=== PATIENT | male | born 1960 | race Caucasian/White ===

== ENCOUNTER 2018-07-03 08:00 | Outpatient (CLI) | payer MEDICARE, OTHER | END 2018-07-03 23:59 | disposition home or self-care (01) | LOC: WOU 08:00 | PROVIDERS: ATTEND Specialist | DX: L89.312 Pressure ulcer of right buttock, stage 2 (principal); L89.321 Pressure ulcer of left buttock, stage 1; L22 Diaper dermatitis; G82.53 Quadriplegia, C5-C7 complete; V49.9XXS Car occupant (driver) (passenger) injured in unspecified traffic accident, sequela; Z87.891 Personal history of nicotine dependence; Z79.899 Other long term (current) drug therapy; I10 Essential (primary) hypertension; Z86.718 Personal history of other venous thrombosis and embolism | CPT/HCPCS: A6402; G0463; Z7610 ==

== ENCOUNTER 2018-07-24 08:00 | Outpatient (CLI) | payer MEDICARE, OTHER | END 2018-07-24 23:59 | disposition home or self-care (01) | LOC: WOU 08:00 | PROVIDERS: ATTEND Specialist | DX: L22 Diaper dermatitis (principal); G82.53 Quadriplegia, C5-C7 complete; S14.104S Unspecified injury at C4 level of cervical spinal cord, sequela; V49.9XXS Car occupant (driver) (passenger) injured in unspecified traffic accident, sequela; I10 Essential (primary) hypertension; Z86.718 Personal history of other venous thrombosis and embolism | CPT/HCPCS: G0463; Z7610; A6402 ==

== ENCOUNTER 2019-01-14 10:00 | Outpatient (CLI) | payer MEDICARE, OTHER | END 2019-01-14 23:59 | disposition home or self-care (01) | LOC: WOU 10:00 | PROVIDERS: ATTEND Podiatrist Foot & Ankle Surgery | DX: L84 Corns and callosities (principal); L60.3 Nail dystrophy; L60.1 Onycholysis; B35.1 Tinea unguium; G82.50 Quadriplegia, unspecified; R60.0 Localized edema | CPT/HCPCS: G0463 ==

== ENCOUNTER 2019-04-14 13:15 | Outpatient (CLI) | payer MEDICARE, OTHER | END 2019-04-14 23:59 | disposition home or self-care (01) | LOC: WOU 13:15 | PROVIDERS: ATTEND Surgery | DX: S51.011A Laceration without foreign body of right elbow, initial encounter (principal); X58.XXXA Exposure to other specified factors, initial encounter; Y92.89 Other specified places as the place of occurrence of the external cause; R53.2 Functional quadriplegia; I10 Essential (primary) hypertension; J45.909 Unspecified asthma, uncomplicated; Z87.891 Personal history of nicotine dependence | CPT/HCPCS: 11042; A6402 ==

== ENCOUNTER 2019-07-14 12:40 | Outpatient (CLI) | payer MEDICARE, OTHER | END 2019-07-14 23:59 | disposition home or self-care (01) | LOC: WOU 12:40 | PROVIDERS: ATTEND Surgery | DX: L60.0 Ingrowing nail (principal); L03.011 Cellulitis of right finger; R53.2 Functional quadriplegia; I10 Essential (primary) hypertension; J45.909 Unspecified asthma, uncomplicated; Z87.891 Personal history of nicotine dependence | CPT/HCPCS: 11042 ==

== ENCOUNTER 2019-07-24 08:30 | Outpatient (CLI) | payer MEDICARE, OTHER | END 2019-07-24 23:59 | disposition home or self-care (01) | LOC: WOU 08:30 | PROVIDERS: ATTEND Podiatrist Foot & Ankle Surgery | DX: B35.1 Tinea unguium (principal); M62.50 Muscle wasting and atrophy, not elsewhere classified, unspecified site; G82.53 Quadriplegia, C5-C7 complete; T14.90XS Injury, unspecified, sequela; V49.9XXS Car occupant (driver) (passenger) injured in unspecified traffic accident, sequela; Z86.718 Personal history of other venous thrombosis and embolism; M79.609 Pain in unspecified limb; M62.3 Immobility syndrome (paraplegic) | CPT/HCPCS: G0463 ==

== ENCOUNTER 2019-08-04 13:00 | Outpatient (CLI) | payer MEDICARE, OTHER | END 2019-08-04 23:59 | disposition home or self-care (01) | LOC: WOU 13:00 | PROVIDERS: ATTEND Surgery | DX: B35.1 Tinea unguium (principal); M62.3 Immobility syndrome (paraplegic); M62.50 Muscle wasting and atrophy, not elsewhere classified, unspecified site; V49.9XXS Car occupant (driver) (passenger) injured in unspecified traffic accident, sequela; I10 Essential (primary) hypertension; J45.909 Unspecified asthma, uncomplicated; Z87.891 Personal history of nicotine dependence | CPT/HCPCS: G0463 ==

== ENCOUNTER 2019-10-23 08:40 | Outpatient (CLI) | payer MEDICARE, OTHER | END 2019-10-23 23:59 | disposition home or self-care (01) | LOC: WOU 08:40 | PROVIDERS: ATTEND Podiatrist Foot & Ankle Surgery | DX: B35.1 Tinea unguium (principal); M62.50 Muscle wasting and atrophy, not elsewhere classified, unspecified site; G82.53 Quadriplegia, C5-C7 complete; S14.104S Unspecified injury at C4 level of cervical spinal cord, sequela; V49.9XXS Car occupant (driver) (passenger) injured in unspecified traffic accident, sequela; I10 Essential (primary) hypertension; M79.609 Pain in unspecified limb; M62.3 Immobility syndrome (paraplegic) | CPT/HCPCS: G0463 ==

== ENCOUNTER → 2019-10-23 | Emergency (ER) | payer MEDICARE, OTHER ==
[~2019-10-23] VITALS: Ht 152.4 cm; Wt 59.0 kg
--- NOTE | 2019-10-23 09:58 | NUR ---
CAME IN FOR REDNESSS AND SWELLING OF R PINKIE FINGER x 1WEEK, PATIENT WHEELCHAIR BOUND, ACCOMPANIED BY BROTHER. TO ER BED 12, PARTIENT AOx4 , BREATHING EVEN AND UNLABORED, DR PENNINGTON AT BEDSIDE
--- NOTE | 2019-10-23 10:49 | NUR ---
US TECH AT BEDSIDE
--- NOTE | 2019-10-23 12:03 | NUR ---
CALLED [facility] [phone] HENRIQUEZ TO CALL US BACK.
--- NOTE | 2019-10-23 13:30 | NUR ---
For Discharge- Patient discharged to home in stable condition. Written and verbal after care instructions given. Patient verbalizes understanding of instruction.
[2019-10-23 14:27] VITALS: BP 110/72
== END | disposition home or self-care (01) ==
LOC: ER 09:55
DX: L60.8 Other nail disorders (principal)
CPT/HCPCS: 93930-TC

== ENCOUNTER 2019-10-27 09:18 | Outpatient (CLI) | payer MEDICARE, OTHER | END 2019-10-27 23:59 | disposition home or self-care (01) | LOC: WOU 09:18 | PROVIDERS: ATTEND Surgery | DX: I73.9 Peripheral vascular disease, unspecified (principal); R53.2 Functional quadriplegia; I10 Essential (primary) hypertension; J45.909 Unspecified asthma, uncomplicated; Z87.891 Personal history of nicotine dependence | CPT/HCPCS: G0463 ==

== ENCOUNTER 2019-10-27 10:14 | Outpatient (CLI) | payer MEDICARE, OTHER ==
[2019-10-27 10:47] LABS: CREATININE 0.2 mg/dL (0.6-1.3)
== END 2019-10-27 23:59 | disposition home or self-care (01) ==
LOC: LAB 10:14
PROVIDERS: ATTEND Surgery
DX: I70.208 Unspecified atherosclerosis of native arteries of extremities, other extremity (principal); M79.89 Other specified soft tissue disorders
CPT/HCPCS: 36415; 82565-TC; 84520-TC

== ENCOUNTER 2019-11-04 08:32 | Outpatient (CLI) | payer MEDICARE, OTHER | END 2019-11-04 23:59 | disposition home or self-care (01) | LOC: CT 08:32 | PROVIDERS: ATTEND Surgery | DX: G31.89 Other specified degenerative diseases of nervous system (principal) | CPT/HCPCS: 73206-TC ==

== ENCOUNTER 2019-11-11 12:40 | Outpatient (CLI) | payer MEDICARE, OTHER | END 2019-11-11 23:59 | disposition home or self-care (01) | LOC: VASLAB 12:40 | PROVIDERS: ATTEND Surgery Vascular Surgery | DX: M62.3 Immobility syndrome (paraplegic) (principal); M62.50 Muscle wasting and atrophy, not elsewhere classified, unspecified site; M79.609 Pain in unspecified limb | CPT/HCPCS: G0463 ==

== ENCOUNTER 2020-01-12 09:30 | Outpatient (CLI) | payer MEDICARE, OTHER | END 2020-01-12 23:59 | disposition home or self-care (01) | LOC: WOU 09:30 | PROVIDERS: ATTEND Surgery | DX: B35.1 Tinea unguium (principal); R53.2 Functional quadriplegia; M62.50 Muscle wasting and atrophy, not elsewhere classified, unspecified site; M79.609 Pain in unspecified limb; I10 Essential (primary) hypertension; J45.909 Unspecified asthma, uncomplicated; Z87.891 Personal history of nicotine dependence | CPT/HCPCS: G0463 ×2 ==

== ENCOUNTER 2020-04-22 12:35 | Outpatient (CLI) | payer MEDICARE, OTHER | END 2020-04-22 23:59 | disposition home or self-care (01) | LOC: WOU 12:35 | PROVIDERS: ATTEND Surgery | DX: B35.1 Tinea unguium (principal); R53.2 Functional quadriplegia; M62.50 Muscle wasting and atrophy, not elsewhere classified, unspecified site; L22 Diaper dermatitis; I10 Essential (primary) hypertension; J45.909 Unspecified asthma, uncomplicated; Z87.891 Personal history of nicotine dependence | CPT/HCPCS: G0463 ==

== ENCOUNTER 2020-11-22 11:00 | Outpatient (CLI) | payer MEDICARE, OTHER | END 2020-11-22 23:59 | disposition home or self-care (01) | LOC: WOU 11:00 | PROVIDERS: ATTEND Podiatrist Foot & Ankle Surgery | DX: B35.1 Tinea unguium (principal); R53.2 Functional quadriplegia; M62.50 Muscle wasting and atrophy, not elsewhere classified, unspecified site; M79.609 Pain in unspecified limb | CPT/HCPCS: G0463 ==

== ENCOUNTER 2021-01-17 13:50 | Outpatient (CLI) | payer MEDICARE, OTHER | END 2021-01-17 23:59 | disposition home or self-care (01) | LOC: WOU 13:50 | PROVIDERS: ATTEND Surgery | DX: L89.896 Pressure-induced deep tissue damage of other site (principal); R53.2 Functional quadriplegia; M62.50 Muscle wasting and atrophy, not elsewhere classified, unspecified site; I10 Essential (primary) hypertension; J45.909 Unspecified asthma, uncomplicated; Z87.891 Personal history of nicotine dependence | CPT/HCPCS: G0463 ==

== ENCOUNTER 2023-01-18 10:11 | Outpatient (CLI) | payer MEDICARE, OTHER | END 2023-01-18 23:59 | disposition home or self-care (01) | LOC: WOU 10:11 | PROVIDERS: ATTEND Podiatrist Foot & Ankle Surgery | DX: L60.3 Nail dystrophy (principal); R53.2 Functional quadriplegia; M62.50 Muscle wasting and atrophy, not elsewhere classified, unspecified site | CPT/HCPCS: G0463 ==

== ENCOUNTER 2023-07-12 13:15 | Outpatient (CLI) | payer MEDICARE, OTHER | END 2023-07-12 23:59 | disposition home or self-care (01) | LOC: WOU 13:15 | PROVIDERS: ATTEND Surgery | DX: L03.116 Cellulitis of left lower limb (principal); L30.4 Erythema intertrigo; L22 Diaper dermatitis; R53.2 Functional quadriplegia; L60.3 Nail dystrophy; I10 Essential (primary) hypertension; J45.909 Unspecified asthma, uncomplicated | CPT/HCPCS: G0463 ==

== ENCOUNTER 2023-12-20 12:55 | Outpatient (CLI) | payer MEDICARE, OTHER | END 2023-12-20 23:59 | disposition home or self-care (01) | LOC: WOU 12:55 | PROVIDERS: ATTEND Surgery | DX: B35.1 Tinea unguium (principal); L60.3 Nail dystrophy; L30.4 Erythema intertrigo; R53.2 Functional quadriplegia; M62.50 Muscle wasting and atrophy, not elsewhere classified, unspecified site; L22 Diaper dermatitis; I10 Essential (primary) hypertension; J45.909 Unspecified asthma, uncomplicated | CPT/HCPCS: G0463 ==